=== PATIENT | male | born 1975 | race African-American/Black ===

== ENCOUNTER 2017-03-08 11:23 | Emergency (ER) | payer OTHER ==
[~2017-03-08] VITALS: Ht 185.4 cm; Wt 119.0 kg
[~2017-03-08 11:23] MED LIST: KEPPRA500 MG PO; KEPPRA750 MG PO; NOHOMEMEDS; RISPERDAL1 MG PO; TRAZODONE HCL50 MG PO; ZOLOFT50 MG PO
[2017-03-08 12:03] LABS: EOSINOPHIL (%) 2.5 % (0-5); EOSINOPHIL COUNT 0.1 K/uL (0-0.3); HEMATOCRIT 43.7 % (38.0-50.0); IMMATURE GRANULOCYTE (%) 0.5 % (0.0-0.7); INSTRUMENT ABS NEUTROPHIL CT 4.1 K/uL; LYMPHOCYTE COUNT 0.9 K/uL (1.0-2.8); MCH 31.9 PG (29.0-34.0); MCHC 33.6 G/DL (30.0-36.0); MCV 94.8 FL (86-99); MEAN PLAT.VOLUME 10.8 uM^3 (9.0-12.4); MONOCYTE (%) 6.2 % (3-12); MONOCYTE COUNT 0.3 K/uL (0-0.8); NEUTROPHIL (%) 73.6 % (45-76); NEUTROPHIL COUNT 4.1 K/uL (1.8-6.4); PLATELET COUNT 209 K/uL (156-360); RBC DIS.WIDTH-CV 13.6 % (11.8-14.6); RBC DIS.WIDTH-SD 47.7 % (39-53); RED BLOOD COUNT 4.61 M/uL (4.00-5.50); WHITE BLOOD COUNT 5.5 K/uL (4.1-10.2)
[2017-03-08 12:11] LABS: CHLORIDE 107 mEq/L (99-109); SODIUM 140 mEq/L (136-147)
[2017-03-08 12:13] LABS: GLUCOSE 112 mg/dL (70-99)
[2017-03-08 12:14] LABS: ANION GAP 11 MEQ/L (2-14)
[2017-03-08 12:16] LABS: SERUM ETHYL ALCOHOL < 10 mg/dL
[2017-03-08 12:17] LABS: GFR ESTIMATE (CALCULATED) > 59 mL/min/
[2017-03-08 12:18] LABS: UREA NITROGEN (BUN) 11 mg/dL (9-23)
[2017-03-08 13:49] LABS: ADD MIUA? NO; BILIRUBIN NEGATIVE; BLOOD NEGATIVE; COLOR YELLOW ((YELLOW)); GLUCOSE (STRIP) NEGATIVE; KETONES NEGATIVE; LEUKOCYTES NEGATIVE; NITRITE NEGATIVE; PROTEIN (STRIP) 30; UCUL ADDED? NO
[2017-03-08 14:00] LABS: COCAINE NEGATIVE (150 ng/mL); METHAMPHETAMINE NEGATIVE (500 ng/mL); PHENCYCLIDINE NEGATIVE (25 ng/mL); THC CANNABINOIDS NEGATIVE (50 ng/mL)
[2017-03-08 14:01] LABS: AMPHETAMINE NEGATIVE (500 ng/mL); BARBITURATES NEGATIVE (200 ng/mL); BENZODIAZEPINES NEGATIVE (150 ng/mL); INTERNAL CONTROLS VALID? YES; METHADONE NEGATIVE (200 ng/mL); OPIATES (MORPHINE) NEGATIVE (100 ng/mL); OXYCODONE NEGATIVE (100 ng/mL); PROPOXYPHENE NEGATIVE (300 ng/mL); TRICYCLIC ANTIDEPRESSANTS NEGATIVE (300 ng/mL)
[2017-03-08 14:44] VITALS: BP 113/81
== END 2017-03-08 14:44 | disposition home or self-care (01) ==
LOC: EME 11:23
PROVIDERS: Personal Emergency Response Attendant
DX: R41.82 Altered mental status, unspecified (principal); R45.1 Restlessness and agitation; F17.200 Nicotine dependence, unspecified, uncomplicated
CPT/HCPCS: 80048; 81003; 85025; 99281; 99284; G0480

== ENCOUNTER 2017-07-28 11:04 | Emergency (ER) | payer OTHER ==
[~2017-07-28] VITALS: Ht 182.9 cm; Wt 94.8 kg
[2017-07-28 13:33] LABS: HEMATOCRIT 42.1 % (38.0-50.0); HEMOGLOBIN 14.5 G/DL (12.5-16.6); MCH 32.2 PG (29.0-34.0); MCHC 34.4 G/DL (30.0-36.0); MCV 93.6 FL (86-99); PLATELET COUNT 285 K/uL (156-360); RBC DIS.WIDTH-CV 12.7 % (11.8-14.6); RBC DIS.WIDTH-SD 43.8 % (39-53); WHITE BLOOD COUNT 13.7 K/uL (4.1-10.2)
[2017-07-28 13:42] LABS: CHLORIDE 103 mEq/L (99-109); POTASSIUM 4.1 mEq/L (3.7-5.4); SODIUM 137 mEq/L (136-147)
[2017-07-28 13:43] LABS: GLUCOSE 102 mg/dL (70-99)
[2017-07-28 13:47] LABS: CREATININE 0.8 mg/dL (0.6-1.3); GFR ESTIMATE (CALCULATED) > 59 mL/min/ (58.99-99999)
[2017-07-28 13:48] LABS: UREA NITROGEN (BUN) 8 mg/dL (9-23)
[2017-07-28 13:54] LABS: TROP-I INTERPRETATION NEGATIVE; TROPONIN-I < 0.01 ng/mL (0.0-0.30)
[2017-07-28] MEDS ORDERED: CEFTIN500 MG PO (16:41)
[2017-07-28] MEDS ORDERED: FLAGYL500 MG PO (16:41)
[2017-07-28] MEDS ORDERED: KEPPRA750 MG PO (16:42)
[2017-07-28 17:05] VITALS: BP 130/78
== END 2017-07-28 17:07 | disposition home or self-care (01) ==
LOC: EME 11:04
PROVIDERS: Nurse Practitioner Family
DX: G40.909 Epilepsy, unspecified, not intractable, without status epilepticus (principal); D72.829 Elevated white blood cell count, unspecified; R07.81 Pleurodynia; F17.200 Nicotine dependence, unspecified, uncomplicated; T42.76XA Underdosing of unspecified antiepileptic and sedative-hypnotic drugs, initial encounter; Z91.128 Patient's intentional underdosing of medication regimen for other reason; F32.9 Major depressive disorder, single episode, unspecified; Z88.0 Allergy status to penicillin
CPT/HCPCS: 71046; 71275; 80048; 84484; 85027; 93005; 99281; 99285; J0696; J1885; J1953; J7030; J7050

== ENCOUNTER 2017-08-04 23:13 | Emergency (ER) | payer OTHER ==
[~2017-08-04] VITALS: Ht 182.9 cm; Wt 96.7 kg
[~2017-08-04 23:13] MED LIST changes: +CEFTIN500 MG PO; +FLAGYL500 MG PO
[2017-08-05 00:09] LABS: HEMATOCRIT 37.5 % (38.0-50.0); HEMOGLOBIN 12.7 G/DL (12.5-16.6); MCH 31.4 PG (29.0-34.0); MCHC 33.9 G/DL (30.0-36.0); MCV 92.6 FL (86-99); PLATELET COUNT 355 K/uL (156-360); RBC DIS.WIDTH-SD 44.4 % (39-53); RED BLOOD COUNT 4.05 M/uL (4.00-5.50); WHITE BLOOD COUNT 9.4 K/uL (4.1-10.2)
[2017-08-05 00:19] LABS: ALBUMIN 3.1 g/dL (3.2-4.8); CHLORIDE 106 mEq/L (99-109); POTASSIUM 4.1 mEq/L (3.7-5.4); SODIUM 138 mEq/L (136-147)
[2017-08-05 00:21] LABS: GLUCOSE 142 mg/dL (70-99); TOTAL PROTEIN 5.9 g/dL (6.4-8.3)
[2017-08-05 00:23] LABS: TOTAL BILIRUBIN 0.3 mg/dL (0.0-1.0)
[2017-08-05 00:24] LABS: SERUM ETHYL ALCOHOL < 10 mg/dL
[2017-08-05 00:25] LABS: ALKALINE PHOSPHATASE 67 IU/L (3-129); CREATININE 0.7 mg/dL (0.6-1.3); GFR ESTIMATE (CALCULATED) > 59 mL/min/ (58.99-99999)
[2017-08-05 00:26] LABS: UREA NITROGEN (BUN) 9 mg/dL (9-23)
[2017-08-05 00:27] LABS: AST (GOT) 18 IU/L (2-34)
[2017-08-05 00:28] LABS: ALT (GPT) 18 IU/L (3-49); CREATINE KINASE 229 IU/L (1-294); TOTAL CK 229 IU/L (1-294)
[2017-08-05 00:34] LABS: APPEARANCE CLEAR ((CLEAR)); BILIRUBIN NEGATIVE; BLOOD NEGATIVE; COLOR YELLOW ((YELLOW)); GLUCOSE (STRIP) NEGATIVE; KETONES 5; LEUKOCYTES NEGATIVE; NITRITE NEGATIVE; PROTEIN (STRIP) 30; SPECIFIC GRAVITY 1.023 (1.000-1.030); UCUL ADDED? NO
[2017-08-05 00:38] LABS: CK-MB 2.9 ng/mL (0.0-4.9); CKMB RELATIVE INDEX 1.3 (0.0-3.9)
[2017-08-05 00:43] LABS: AMPHETAMINE NEGATIVE (500 ng/mL); BARBITURATES NEGATIVE (200 ng/mL); BENZODIAZEPINES NEGATIVE (150 ng/mL); BUPRENORPHINE NEGATIVE (10 ng/mL); COCAINE NEGATIVE (150 ng/mL); METHADONE NEGATIVE (200 ng/mL); METHAMPHETAMINE NEGATIVE (500 ng/mL); OPIATES (MORPHINE) NEGATIVE (100 ng/mL); OXYCODONE NEGATIVE (100 ng/mL); PHENCYCLIDINE NEGATIVE (25 ng/mL); PROPOXYPHENE NEGATIVE (300 ng/mL); THC CANNABINOIDS NEGATIVE (50 ng/mL); TRICYCLIC ANTIDEPRESSANTS NEGATIVE (300 ng/mL)
[2017-08-05 02:30] VITALS: BP 112/68
== END 2017-08-05 02:31 | disposition home or self-care (01) ==
LOC: EME → EDBD 23:13 → EME 08-05 02:31
PROVIDERS: Emergency Medicine
DX: G40.909 Epilepsy, unspecified, not intractable, without status epilepticus (principal); F32.9 Major depressive disorder, single episode, unspecified; F17.200 Nicotine dependence, unspecified, uncomplicated; Z88.0 Allergy status to penicillin
CPT/HCPCS: 80053; 81003; 82550; 82553; 85027; 99281; 99284; G0480

== ENCOUNTER 2017-08-30 00:43 | Emergency (ER) | payer OTHER ==
[~2017-08-30] VITALS: Ht 185.4 cm; Wt 89.9 kg
[2017-08-30 01:24] LABS: HEMATOCRIT 39.4 % (38.0-50.0); HEMOGLOBIN 13.7 G/DL (12.5-16.6); MCH 32.3 PG (29.0-34.0); MCHC 34.8 G/DL (30.0-36.0); MCV 92.9 FL (86-99); RBC DIS.WIDTH-CV 13.6 % (11.8-14.6); RED BLOOD COUNT 4.24 M/uL (4.00-5.50); WHITE BLOOD COUNT 8.2 K/uL (4.1-10.2)
[2017-08-30 01:28] LABS: ALBUMIN 3.7 g/dL (3.2-4.8); CHLORIDE 102 mEq/L (99-109); POTASSIUM 3.9 mEq/L (3.7-5.4); SODIUM 137 mEq/L (136-147)
[2017-08-30 01:30] LABS: GLUCOSE 160 mg/dL (70-99)
[2017-08-30 01:31] LABS: D-DIMER ELISA < 150.00 ng/mLDDU (<230); TOTAL PROTEIN 6.3 g/dL (6.4-8.3)
[2017-08-30 01:32] LABS: TOTAL BILIRUBIN 0.1 mg/dL (0.0-1.0)
[2017-08-30 01:34] LABS: ALKALINE PHOSPHATASE 75 IU/L (3-129); CREATININE 0.9 mg/dL (0.6-1.3); GFR ESTIMATE (CALCULATED) > 59 mL/min/ (58.99-99999)
[2017-08-30 01:35] LABS: UREA NITROGEN (BUN) 14 mg/dL (9-23)
[2017-08-30 01:36] LABS: AST (GOT) 12 IU/L (2-34)
[2017-08-30 01:37] LABS: ALT (GPT) 20 IU/L (3-49); CREATINE KINASE 110 IU/L (1-294)
[2017-08-30 01:42] LABS: TROP-I INTERPRETATION NEGATIVE; TROPONIN-I < 0.01 ng/mL (0.0-0.30)
[2017-08-30 02:07] LABS: PLAT.SUFFICIENCY ADEQUATE
[2017-08-30 04:21] LABS: TROP-I INTERPRETATION NEGATIVE; TROPONIN-I 0.03 ng/mL (0.0-0.30)
[2017-08-30] MEDS ORDERED: KEPPRA750 MG PO (04:53)
[2017-08-30] MEDS ORDERED: ZITHROMAX Z-PA250 MG PO (04:53)
[2017-08-30 04:56] LABS: PLATELET COUNT 228 K/uL (156-360)
[2017-08-30 05:32] VITALS: BP 115/62
== END 2017-08-30 05:31 | disposition home or self-care (01) ==
LOC: EME → EDBD 00:43 → EME 00:43
PROVIDERS: Emergency Medicine
DX: J20.9 Acute bronchitis, unspecified (principal); R56.9 Unspecified convulsions; F32.9 Major depressive disorder, single episode, unspecified; F17.200 Nicotine dependence, unspecified, uncomplicated; Z88.0 Allergy status to penicillin
CPT/HCPCS: 71045; 80053; 82550; 84484; 85027; 85379; 93005; 99281; 99283